=== PATIENT | male | born 1990 | race Hispanic/Latino ===

== ENCOUNTER 2022-02-25 20:22 | Emergency (ER) | payer OTHER ==
[2022-02-25 20:25] VITALS: BP 150/80
== END 2022-02-25 21:52 | disposition home or self-care (01) ==
LOC: EDH 20:22
DX: T18.9XXA Foreign body of alimentary tract, part unspecified, initial encounter (principal); F32.A Depression, unspecified; F20.9 Schizophrenia, unspecified; X58.XXXA Exposure to other specified factors, initial encounter; Y93.89 Activity, other specified; Y92.89 Other specified places as the place of occurrence of the external cause; Y99.8 Other external cause status
CPT/HCPCS: 71045; 74018